=== PATIENT | male | born 1980 | race Caucasian/White ===

== ENCOUNTER 2019-12-28 17:43 | Outpatient (CLI) | payer BC | END 2019-12-28 17:44 | disposition home or self-care (01) | LOC: COV 17:43 | PROVIDERS: ATTEND Family Medicine | DX: R05 Cough (principal); R50.9 Fever, unspecified | CPT/HCPCS: 81599 ==

== ENCOUNTER 2020-07-18 12:07 | Outpatient (CLI) | payer BC | END 2020-07-18 12:08 | disposition home or self-care (01) | LOC: COV 12:07 | PROVIDERS: ATTEND Family Medicine | DX: R06.02 Shortness of breath (principal); M79.10 Myalgia, unspecified site; R53.83 Other fatigue; R51.9 Headache, unspecified; Z20.828 Contact with and (suspected) exposure to other viral communicable diseases ==

== ENCOUNTER 2020-09-21 14:03 | Outpatient (CLI) | payer BC ==
[2020-09-21 14:55] VITALS: BP 126/86
--- NOTE | 2020-09-21 14:55 | SLEEP CARE CONSULTATION ---
Information from patient questionnaire entered by Rach Velasquez. I have reviewed and concur with the information entered by Rach Velasquez. This document represents the service I personally performed and the decisions made by me, Bertha Bah ARNP. History of Present Illness Service Date and Time: 09/21/2020 1403 Reason for Visit: New patient Chief Complaint: reports: Unrefreshed sleep, Snoring, Excessive daytime sleepiness, Fatigue, Frequent awakenings at night. denies: Insomnia, Observed pauses in breathing Date of Onset: 5 years Usual bedtime: 3:00 AM Time it takes to fall asleep: Varies from night to night, 1/2 hour usually Snores at night: Yes (I was told I do, yes) Observed to quit breathing while asleep: No Sleeps alone due to snoring: No Number of times waking at night: 1 to 2 Reasons for waking at night: reports: Bathroom, Other (sometimes no rhyme nor reason). denies: Choking, Snoring, Gasping for air Toss, Turn, or Twitch while sleeping: Yes Recalls having dreams: Yes (sometimes) Usually gets out of bed at: 11:00 AM Feels refreshed in the morning: No Morning headache: Yes (every morning, lasting 1-2 hours; coffee helps) Sleepy or fatigued during the day: Yes Ever fallen asleep while driving: No Takes day naps: No Dreams during day naps: No Prior sleep studies: No Additional HPI information: I had the pleasure of seeing JOHNNY ABBOTT today regarding the possibility of him having a sleep disorder. His current complaints are unrefreshed sleep, snoring, fatigue during the day, morning headaches and frequent night awakenings. He feels like he wakes up too early and then does not feel like he is rested. His stomach is upset in the mornings. His father snores loudly and has pauses in breathing, it has been recommended that he get a CPAP machine but he hasn't gotten it done because he has no insurance. - Parasomnia Symptoms Ever been unable to move upon waking from sleep: No Walks in sleep: No Talks in sleep: Yes (when a child) Ever acted out dreams in sleep: No Ever felt weak in the knees when startled or emotional: No Bothered by creepy, crawly, restless sensations in legs: No Problems with memory or concentration: Yes Subjective Initial [place] Sleepiness Scale score: 8 (in 2020) Past Medical History Past Medical History: reports: Anxiety. 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 Patient is Single and lives in [place]. Have you smoked in the past 12 months: Yes (social thing) Cigarettes per day (20/pack): 10 Years of smokin Quit date: 2011 Smoking Pack Years: 2.5 Alcohol use: Yes Alcohol amount and frequency: 1 to 2 beers, 4 nights a week Caffeine use: Yes Caffeine amount and frequency: 2 cups a day (coffee) Family History Family history of sleep disordered breathing: Yes (My father, he snores) Family Hx Sleep Apnea: Father: Snoring, Sleep apnea - Untreated, Sibling: Snoring Allergies and Home Medications Drug allergies reviewed: Yes (penicillin, amoxicillin) Home medication list reviewed: Yes Allergy and home medication list: AllerClear juice and vitamins Flonase nasal spray, prn Review of Systems Cardiovascular: reports: palpitations (Rarely. Over the years, a few times slight flutter). denies: irregular heart rate or pulse Respiratory: denies: shortness of breath Gastrointestinal: reports: abdominal pain. denies: heartburn, difficulty swallowing Urinary: denies: impotence Neurological: reports: headaches. denies: head trauma Psychiatric: reports: anxiety Ear/Nose/Throat: reports: nasal congestion, nose bleeds (Slight, when dry out), dry mouth/throat, wisdom teeth removed. denies: sinus problems, injury to nose, tonsillectomy Endocrine: reports: sluggishness, too hot or cold, excessive thirst Musculoskeletal: reports: joint pain, neck pain, back pain Immunologic: reports: sneezing (runny nose), itching, allergies to food or environment Physical Exam Blood Pressure: 126/86 Cuff size: wrist Heart Rate: 88 O2 Saturation: 98 Height: 5 ft 9 in Weight: 164 lb Body Mass Index: 24.2 BMI Classification: Healthy weight Nostrils: patent to airflow Turbinates: normal Septum: midline Mouth and throat: narrow oropharynx Uvula visualization: 50% Mallampati Class II Tongue: enlarged in size with teeth bernstein on lateral edges Tonsils: 1+ Neck: normal w/o lymphadenopathy or thyromegaly Heart: regular rate and rhythm Lungs: clear bilaterally Impression and Plan 1. Suspected Obstructive Sleep Apnea-Hypopnea Syndrome, as suggested by a history of loud and irregular snoring, morning headache, frequent awakening during the night, unrefreshed sleep, cognitive impairment and excessive daytime sleepiness. Narrow oropharynx and obesity are common predisposing factors for obstructive sleep apnea-hypopnea syndrome. I recommend proceeding to polysomnography to confirm the diagnosis and to assess severity. If the patient has significant sleep disordered breathing, a manual CPAP titration study will also be performed to find the optimal treatment pressure. I informed the patient of what the sleep studies involve and after some discussion, obtained agreement to proceed. The pathophysiology of obstructive sleep apnea-hypopnea syndrome was discussed with the patient and health risks of cardiovascular and cerebrovascular disease if not treated. AASM brochure for obstructive sleep apnea-hypopnea syndrome given and reviewed. Risks of drowsy driving discussed in detail and patient advised to avoid long distance driving and to ear pull machine operator at the first sign of drowsiness. Patient agreed to plan. * Schedule polysomnography +- manual CPAP titration study. * Avoid long distance driving or driving when feeling sleepy. * Avoid alcohol, sedative and muscle relaxant around bedtime. * Review instructions provided by trained office staff on how to prepare for the sleep study. * Return for follow-up after sleep study completed. Visit Type: In Office Time Spent with Patient (minutes): 31 Provider Statement: I spent 100% of the Face to Face Visit with the patient with greater than 50% spent counseling the patient and coordination of care.
== END 2020-09-21 14:04 | disposition home or self-care (01) ==
LOC: SC 14:03
PROVIDERS: ATTEND Nurse Practitioner Family
DX: G47.10 Hypersomnia, unspecified (principal); R41.89 Other symptoms and signs involving cognitive functions and awareness; G47.8 Other sleep disorders; R51.9 Headache, unspecified; R06.83 Snoring; F17.210 Nicotine dependence, cigarettes, uncomplicated
CPT/HCPCS: 99203; 99212

== ENCOUNTER 2020-10-10 02:00 | Outpatient (CLI) | payer BC | END 2020-10-10 02:01 | disposition home or self-care (01) | LOC: SC 02:00 | PROVIDERS: ATTEND Nurse Practitioner Family | DX: G47.33 Obstructive sleep apnea (adult) (pediatric) (principal); R09.02 Hypoxemia | CPT/HCPCS: 95806 ==

== ENCOUNTER 2020-10-16 12:09 | Outpatient (CLI) | payer BC ==
--- NOTE | 2020-10-16 11:54 | SLEEP CARE CONSULTATION ---
Information from patient questionnaire entered by Maile Trinidad. I have reviewed and concur with the information entered by Maile Trinidad. This document represents the service I personally performed and the decisions made by me, Diandra Kumar MD, [facility]. History of Present Illness Service Date and Time: 10/16/2020 1140 Initial [place] Sleepiness Scale score: 8 (in 2019) Additional HPI information: To minimize the risk of COVID-19 exposure, the patient has requested and consented to this video telemedicine visit. The patient also agrees to having his insurance billed. HPI: Mr. Ivy was called for a follow up of the sleep study he had on 10/10/20. The test showed mild obstructive sleep apnea-hypopnea with an AHI of 10.3 and anat oxygen saturation of 85%. He only slept supine. He recalls being awake half of the night. The patient was informed of these findings. I explained to him the pathophysiology behind obstructive sleep apnea. We then spent quite a bit of time discussing different treatment options. For mild obstructive sleep apnea, surgery and oral appliance are alternatives to nasal CPAP therapy but in moderate or severe cases, nasal CPAP is the most effective and reliable treatment. Weight loss in an obese individual is strongly recommended. After some discussion, he opted to go with the nasal CPAP therapy. I explained to him how CPAP machine works and what to expect when using the machine. He is encouraged to use CPAP every night especially in the first 2 to 3 nights in order to get used to it. He should call his CPAP supplier or me to discuss any mechanical problem that may occur. If he snores or feels like he is not getting enough air from the machine, he should notify me and I will increase the pressure. Sleep Study - Results Type of Sleep Study: Home sleep study Prior sleep studies: No Allergies and Home Medications Drug allergies reviewed: Yes Home medication list reviewed: Yes Review of Systems Review of systems same as previous: Yes Physical Exam Height: 5 ft 9 in Impression and Plan IMPRESSION: 1. Obstructive Sleep Apnea-Hypopnea Syndrome, mild, (could be moderate if he was actually awake half of the night). Possibly, this is the cause of the patients symptoms of unrefreshed sleep, morning headache, and excessive daytime sleepiness. As mentioned above, the patient will be started on an autoCPAP set at 5 - 15 cmH2O. Depending on his response and compliance he may be brought back for an overnight CPAP titration study. PLAN: 1. Prescription made for an autoCPAP, heated humidifier, and related supplies. 2. Avoid alcohol consumption near bedtime. 3. Return in six weeks for follow up. I will assess his response and compliance at that time. Visit Type: Telehealth Video Video Type: Doximity Patient agrees and consents to this telehealth visit type: Yes Patient agrees to have their insurance billed: Yes Time Spent with Patient (minutes): 10 Provider Statement: I spent 100% of the Telehealth Video Call with the patient with greater than 50% spent counseling the patient and coordination of care.
== END 2020-10-16 12:10 | disposition home or self-care (01) ==
LOC: SC 12:09
PROVIDERS: ATTEND Internal Medicine Pulmonary Disease
DX: G47.33 Obstructive sleep apnea (adult) (pediatric) (principal)

== ENCOUNTER 2020-12-13 11:54 | Outpatient (CLI) | payer BC ==
--- NOTE | 2020-12-13 12:32 | SLEEP CARE CONSULTATION ---
Information from patient questionnaire entered by Maile Trinidad. I have reviewed and concur with the information entered by Maile Trinidad. This document represents the service I personally performed and the decisions made by , Bertha Bah ARNP. History of Present Illness Service Date and Time: 12/13/2020 1154 Previous diagnosis: Mild, Obstructive Sleep Apnea-Hypopnea Syndrome AHI: 10.2 (in 2020) Reason for follow up: first compliance Equipment type: CPAP Equipment obtained from: [employer] (got initial supplies) Mask style: Full face Backup mask available: Yes (other mask) Last cushion change: 1 month Prior sleep studies: Yes Year and Where: 2020 - [facility] Type of Sleep Study: Home sleep study HPI additional information: JOHNNY ABBOTT was diagnosed to have mild, AHI 10.3, obstructive sleep apnea- hypopnea syndrome and returned today for CPAP therapy first compliance follow- up. CPAP Compliance Data - Data Reviewed with Patient Average duration of nightly device use: 4 hr 14 min Compliance rate %: 77 (11/01/20-11/30/20) Current pressure setting (cmH2O): 5-6 Humidity settin Average residual AHI: 2.1 Central apnea: 3.8 Obstructive apnea: 0.2 Compliance data discussion: His headaches have reduced. Subjective Patient concerns: reports: nasal congestion. denies: aerophagia, mask discomfort, air blowing in eyes, mask leak noise, condensation in mask/hose, dry mouth, nose, throat, epistaxis, other Observed to snore while using device: No Current pressure setting perceived as: comfortable On therapy, patient: reports: sleeping better, awakening more refreshed, being more awake and alert during the day, more rested overall. denies: drowsiness while driving Initial [place] Sleepiness Scale score: 8 (in 2019) Current [place] Sleepiness Scale score: 8 Allergies and Home Medications Home medication list reviewed: Yes (no new medications) Review of Systems Review of systems same as previous: Yes (no changes) Physical Exam Heart Rate: 73 O2 Saturation: 98 Height: 5 ft 9 in Weight: 167 lb Body Mass Index: 24.6 BMI Classification: Healthy weight Impression and Plan 1. Obstructive Sleep Apnea-Hypopnea Syndrome, mild, with fair treatment compliance and good apnea control. On CPAP therapy, the patient has better sleep quality and is more rested overall. He has been waking up with the mask off and finds that his nose if very congested. Nasal congestion can be reduced with increasing the CPAP humidity. The heated hose can be adjusted higher if condensation with higher humidity setting. Saline nasal spray can be used prior to CPAP to clear nasal secretions and wash off any nasal allergens to facilitate nasal breathing. Verbal instructions given on how to change humidity and heated hose settings with rationale explaining why to change. He voiced understanding. He has adequate control at current pressure settings, no changes today. Patient's apnea severity and rationale for treatment to reduce apnea, improve sleep quality and reduce cardiovascular and cerebrovascular events was reviewed. I also reviewed the benefit of consistent device use of CPAP for anxiety. * Continue auto CPAP pressure at 5-6 cmH2O * Notify me if snoring with mask or feeling that the pressure is too much or too little * Maintain a healthy weight * Call this office if any problems using CPAP * Return for follow up in 1-2 months, or sooner if concerns arise Counseling Topics: Weight control Visit Type: In Office Time Spent with Patient (minutes): 19 Provider Statement: I spent 100% of the Face to Face Visit with the patient with greater than 50% spent counseling the patient and coordination of care.
== END 2020-12-13 11:55 | disposition home or self-care (01) ==
LOC: SC 11:54
PROVIDERS: ATTEND Nurse Practitioner Family
DX: G47.33 Obstructive sleep apnea (adult) (pediatric) (principal)
CPT/HCPCS: 99212

== ENCOUNTER 2021-02-23 11:35 | Outpatient (CLI) | payer BC ==
--- NOTE | 2021-02-23 12:01 | SLEEP CARE CONSULTATION ---
Information from patient questionnaire entered by Maile Trinidad. I have reviewed and concur with the information entered by Maile Trinidad. This document represents the service I personally performed and the decisions made by , Bertha Bah ARNP. History of Present Illness Service Date and Time: 02/23/2021 1135 Previous diagnosis: Mild, Obstructive Sleep Apnea-Hypopnea Syndrome AHI: 10.2 (in 2020) Reason for follow up: other (2 month) Equipment type: CPAP Equipment obtained from: [employer] (no more supplies received yet) Mask style: Full face Backup mask available: No (will keep old mask when replaced) Prior sleep studies: Yes Year and Where: 2020 - [facility] Type of Sleep Study: Home sleep study HPI additional information: JOHNNY ABBOTT was diagnosed to have mild, AHI 10.2, obstructive sleep apnea- hypopnea syndrome and returned today for CPAP therapy two month follow-up. CPAP Compliance Data - Data Reviewed with Patient Average duration of nightly device use: 4 hr 39 min Compliance rate %: 82 (60 days) Current pressure setting (cmH2O): 5-6 Humidity settin Average residual AHI: 2.0 Subjective Missed days of use due to: reports: travel Patient concerns: reports: nasal congestion. denies: aerophagia, mask discomfort, air blowing in eyes, mask leak noise, condensation in mask/hose, dry mouth, nose, throat, epistaxis, other Observed to snore while using device: No Current pressure setting perceived as: comfortable On therapy, patient: reports: sleeping better, awakening more refreshed, being more awake and alert during the day, more rested overall. denies: drowsiness while driving Initial [place] Sleepiness Scale score: 8 (in 2019) Current [place] Sleepiness Scale score: 10 Allergies and Home Medications Home medication list reviewed: Yes (no new meds) Review of Systems Review of systems same as previous: Yes (no changes) Physical Exam Heart Rate: 71 O2 Saturation: 98 Height: 5 ft 9 in Weight: 172 lb Body Mass Index: 25.4 BMI Classification: Overweight Impression and Plan 1. Obstructive Sleep Apnea-Hypopnea Syndrome, mild, with good treatment compliance and good apnea control. On CPAP therapy, the patient has better sleep quality and is more rested overall. He is very satisfied with his treatment. Patient was counseled on the difference between meeting compliance and optimal use of CPAP. Optimal use of CPAP is use of CPAP with all sleep to obtain maximum benefit of treatment. Patient is encouraged to use CPAP with all sleep. He has been getting some increased nasal congestion with seasonal allergies lately that has affected his use of CPAP. Nasal congestion can be reduced with increasing the CPAP humidity as shown on sample device. The heated hose can be adjusted higher if condensation with higher humidity setting. OTC Saline nasal spray may be used prior to CPAP to clear nasal secretions and wash off any nasal allergens to facilitate nasal breathing. In addition, a steamy shower before bed will often assist nasal drainage. He would also like to acquire a portable CPAP device. I advised him that the insurance may not pay for device. A prescription for a portable machine was provided. He voiced understanding and agreement with plan. Patient's apnea severity and rationale for treatment to reduce apnea, improve sleep quality and reduce cardiovascular and cerebrovascular events was reviewed. I also reviewed the benefit of consistent device use of CPAP for anxiety. * Continue auto CPAP pressure at 5-6 cmH2O * Portable CPAP prescription * Notify me if snoring with mask or feeling that the pressure is too much or too little * Attempt to lose weight * Call this office if any problems using CPAP * Return for follow up in 3 months, or sooner if concerns arise Counseling Topics: Weight loss health impact Visit Type: In Office Time Spent with Patient (minutes): 18 Provider Statement: I spent 100% of the Face to Face Visit with the patient with greater than 50% spent counseling the patient and coordination of care.
== END 2021-02-23 11:36 | disposition home or self-care (01) ==
LOC: SC 11:35
PROVIDERS: ATTEND Nurse Practitioner Family
DX: G47.33 Obstructive sleep apnea (adult) (pediatric) (principal); E66.3 Overweight; Z68.25 Body mass index [BMI] 25.0-25.9, adult
CPT/HCPCS: 99212; 99213

== ENCOUNTER 2021-06-01 11:33 | Outpatient (CLI) | payer BC ==
--- NOTE | 2021-06-01 12:23 | SLEEP CARE CONSULTATION ---
Information from patient questionnaire entered by Maile Trinidad. I have reviewed and concur with the information entered by Maile Trinidad. This document represents the service I personally performed and the decisions made by , Bertha Bah ARNP. History of Present Illness Service Date and Time: 06/01/2021 1133 Previous diagnosis: Mild, Obstructive Sleep Apnea-Hypopnea Syndrome AHI: 10.2 (in 2020) Reason for follow up: three month Equipment type: CPAP Equipment obtained from: [employer] (he has got some supplies but has to call) Mask style: Full face Mask brand: [employer]ics ([place]) Backup mask available: No (will keep old mask when replaced) Last cushion change: over 3 months Prior sleep studies: Yes Year and Where: 2020 - [facility] Type of Sleep Study: Home sleep study HPI additional information: JOHNNY ABBOTT was diagnosed to have mild, AHI 10.2, obstructive sleep apnea- hypopnea syndrome and returns via Telehealth visit today for CPAP therapy three month follow-up. CPAP Compliance Data - Data Reviewed with Patient Average duration of nightly device use: 4 hr 30 min Compliance rate %: 77 (90 days) Current pressure setting (cmH2O): 5-6 Humidity settin Average residual AHI: 1.8 Subjective Patient concerns: reports: mask leak noise (needs new mask cushion), condensation in mask/hose, nasal congestion, dry mouth, nose, throat (has turned up the humidity). denies: aerophagia, mask discomfort, air blowing in eyes, epistaxis, other Observed to snore while using device: No Current pressure setting perceived as: comfortable On therapy, patient: reports: sleeping better, awakening more refreshed, being more awake and alert during the day, more rested overall. denies: drowsiness while driving Initial [place] Sleepiness Scale score: 8 (in 2019) Current [place] Sleepiness Scale score: 9 Allergies and Home Medications Home medication list reviewed: Yes (increased supplements) Review of Systems Review of systems same as previous: Yes (no changes) Physical Exam Vital signs obtained and entered by: Telehealth visit to reduce exposure during Covid pandemic Height: 5 ft 9 in Impression and Plan 1. Obstructive Sleep Apnea-Hypopnea Syndrome, mild, with good treatment compliance and good apnea control. On CPAP therapy, the patient has better sleep quality and is more rested overall. Patient has had some nasal congestion and mouth dryness. He tried to increase his humidity but then he had water in the tubing that was causing gurgling sounds. He has also had more mask leaking due to the mask cushion needing to be replaced. Oral dryness can be reduced by adjusting humidity setting higher or heated hose lower or by adjusting both set tings. Oral dryness can also be reduced by reducing mask leaks. Patient has had difficulty getting response from his DME on supplies. They will get the supplies to him but he has to continually call them. He will call to get a new mask cushion since it needs replacement to reduce leaking. Patient's apnea severity and rationale for treatment to reduce apnea, improve sleep quality and reduce cardiovascular and cerebrovascular events was reviewed. I also reviewed the benefit of consistent device use of CPAP for anxiety. * Continue auto CPAP pressure at 5-6 cmH2O * Notify me if snoring with mask or feeling that the pressure is too much or too little * Call this office if any problems using CPAP * Return for follow up in 6 months, or sooner if concerns arise Counseling Topics: Spare mask, Weight loss health impact Visit Type: Telehealth Video Video Type: VSee Patient Location: Home Location of Provider: Office Patient agrees and consents to this telehealth visit type: Yes Patient agrees to have their insurance billed: Yes Time Spent with Patient (minutes): 22 Provider Statement: I spent 100% of the Telehealth Video Call with the patient with greater than 50% spent counseling the patient and coordination of care.
== END 2021-06-01 11:34 | disposition home or self-care (01) ==
LOC: SC 11:33
PROVIDERS: ATTEND Nurse Practitioner Family
DX: G47.33 Obstructive sleep apnea (adult) (pediatric) (principal)

== ENCOUNTER 2021-11-10 08:00 | Outpatient (CLI) | payer SELFPAY ==
--- NOTE | 2021-11-10 18:25 | XRAY Report ---
PROCEDURE: Chest 2 View X-Ray INDICATIONS: COUGH TECHNIQUE: 2 view(s) of the chest. COMPARISON: None. FINDINGS: Surgical changes and devices: None. Lungs and pleura: No pleural effusions or pneumothorax. Mild generalized interstitial infiltrates ar e seen on both sides. Mediastinum: Mediastinal contours are normal. Heart size is normal. Bones and chest wall: No suspicious bony abnormalities. Soft tissues appear unremarkable. IMPRESSION: Bilateral patchy infiltrates are seen, which are consistent with the known clinical hist ory of COVID pneumonia. Reviewed by: Ray Pierce MD on 11/10/2021 5:23 PM [facility] Approved by: Ray Pierce MD on 11/10/2021 5:23 PM [facility] Station ID: [id number]
== END 2021-11-10 23:59 | disposition home or self-care (01) ==
LOC: DI.S 08:00
PROVIDERS: ATTEND Physician Assistant
DX: U07.1 COVID-19 (principal)

== ENCOUNTER 2022-02-11 08:00 | Outpatient (CLI) | payer SELFPAY ==
--- NOTE | 2022-02-11 16:26 | XRAY Report ---
PROCEDURE: Chest 2 View X-Ray INDICATIONS: MALAISE TECHNIQUE: 2 view(s) of the chest. COMPARISON: To 522 plain films FINDINGS: Surgical changes and devices: None. Lungs and pleura: No pleural effusions or pneumothorax. Lungs are clear. Mediastinum: Mediastinal contours are normal. Heart size is normal. Bones and chest wall: No suspicious bony abnormalities. Soft tissues appear unremarkable. IMPRESSION: No acute process. Reviewed by: Jessica Gandhi MD on 02/11/2022 4:24 PM PDT Approved by: Jessica Gandhi MD on 02/11/2022 4:24 PM PDT Station ID: [id number]
[2022-02-11 20:05] LABS: BASOPHILS % (AUTO) 0.5 %; EOSINOPHILS # (AUTO) 0.1 10^3/uL (0.0-0.7); HCT - HEMATOCRIT 48.9 % (42.0-52.0); HGB - HEMOGLOBIN 16.7 g/dL (14.0-18.0); LYMPHOCYTES # (AUTO) 1.3 10^3/uL (1.5-3.5); LYMPHOCYTES % (AUTO) 24.3 %; MEAN CORPUSCULAR HEMOGLOBIN 31.6 pg (27.0-31.0); MEAN CORPUSCULAR HGB CONC 34.2 g/dL (32.0-36.0); MEAN CORPUSCULAR VOLUME 92.6 fL (80.0-94.0); MEAN PLATELET VOLUME 9.8 fL (7.4-11.4); MONOCYTES # (AUTO) 0.5 10^3/uL (0.0-1.0); MONOCYTES % (AUTO) 8.2 %; NEUTROPHILS # (AUTO) 3.6 10^3/uL (1.5-6.6); NEUTROPHILS % (AUTO) 64.8 %; PLT - PLATELET COUNT 286 10^3/uL (130-450); RED BLOOD COUNT 5.28 10^6/uL (4.70-6.10); RED CELL DISTRIBUTION WIDTH 12.8 % (12.0-15.0); WHITE BLOOD COUNT 5.5 x10^3/uL (4.8-10.8)
[2022-02-11 20:33] LABS: ALBUMIN 4.8 g/dL (3.2-5.5); ALBUMIN/GLOBULIN RATIO 1.4 (1.0-2.2); BILIRUBIN,TOTAL 0.8 mg/dL (0.2-1.0); CALCIUM 9.8 mg/dL (8.5-10.3); CREATININE 0.9 mg/dL (0.6-1.2); POTASSIUM 4.1 mmol/L (3.5-5.0); TOTAL PROTEIN 8.2 g/dL (6.7-8.2)
[2022-02-11 20:47] LABS: THYROID STIMULATING HORMONE 2.14 uIU/mL (0.34-5.60)
== END 2022-02-11 23:59 | disposition home or self-care (01) ==
LOC: DI.S 08:00
PROVIDERS: ATTEND Physician Assistant Medical
DX: R53.81 Other malaise (principal); R06.02 Shortness of breath; Z20.822 Contact with and (suspected) exposure to COVID-19
CPT/HCPCS: 36415; 80053; 84443; 85025; 85651; 87275; 87276

== ENCOUNTER 2023-02-21 08:00 | Outpatient (CLI) | payer BC ==
--- NOTE | 2023-02-21 19:11 | XRAY Report ---
PROCEDURE: Shoulder 3 View RT INDICATIONS: RIGHT SHOULDER PAIN TECHNIQUE: 3 views of the shoulder were acquired. COMPARISON: None. FINDINGS: Bones: No fractures or dislocations. No suspicious bony lesions. Visualized ribs appear intact. Mild AC joint degenerative changes. Soft tissues: No suspicious soft tissue calcifications. IMPRESSION: No acute bony abnormality. If pain persists with conservative management, consider repeat radiographs in 10-14 days or cross-sectional imaging. Reviewed by: Shade Ramos MD on 02/21/2023 7:10 PM PDT Approved by: Shade Ramos MD on 02/21/2023 7:10 PM PDT Station ID: [id number]
--- NOTE | 2023-02-21 19:13 | XRAY Report ---
PROCEDURE: Cervical Spine 2 View INDICATIONS: CERVICAL RADICULOPATHY TECHNIQUE: 3 view(s) of the cervical spine were acquired. COMPARISON: None. FINDINGS: Bones: No definite acute fractures or dislocations to the T1 level. No suspicious bony lesions. Mild multilevel degenerative changes with disc height loss, endplate spurring, and facet arthropathy. Soft tissues: No prevertebral soft tissue swelling. IMPRESSION: Mild degenerative changes of the cervical spine. Reviewed by: Shade Ramos MD on 02/21/2023 7:12 PM PDT Approved by: Shade Ramos MD on 02/21/2023 7:12 PM PDT Station ID: [id number]
== END 2023-02-21 23:59 | disposition home or self-care (01) ==
LOC: DI.S 08:00
PROVIDERS: ATTEND Registered Nurse
DX: M47.812 Spondylosis without myelopathy or radiculopathy, cervical region (principal); M19.011 Primary osteoarthritis, right shoulder

== ENCOUNTER 2023-04-12 13:08 | Outpatient (CLI) | payer BC ==
--- NOTE | 2023-04-12 20:28 | XRAY Report ---
PROCEDURE: Sinus Complete INDICATIONS: SNORING TECHNIQUE: 3 views of the sinuses were acquired. COMPARISON: None FINDINGS: Sinuses: The visualized sinuses demonstrate no air-fluid levels or mucosal thickening. The visualiz ed mastoids also appear clear. Multiple screws are seen in the mandible and facial bones. Bones: No suspicious bony lesions. Nasal septum is midline. IMPRESSION: No acute sinus disease. Reviewed by: Ralph Finn on 04/12/2023 7:27 PM [facility] Approved by: Ralph Finn on 04/12/2023 7:27 PM [facility] Station ID: [id number]
== END 2023-04-12 13:09 | disposition home or self-care (01) ==
LOC: DI.S 13:08
PROVIDERS: ATTEND Internal Medicine
DX: R07.89 Other chest pain (principal); M54.12 Radiculopathy, cervical region; M25.511 Pain in right shoulder; R53.83 Other fatigue; Z99.89 Dependence on other enabling machines and devices; G47.33 Obstructive sleep apnea (adult) (pediatric); R53.81 Other malaise; R06.02 Shortness of breath; G47.00 Insomnia, unspecified

== ENCOUNTER 2023-08-27 12:23 | Outpatient (CLI) | payer BC | END 2023-08-27 12:24 | disposition home or self-care (01) | LOC: DI 12:23 | PROVIDERS: ATTEND Internal Medicine | DX: R07.89 Other chest pain (principal); R06.02 Shortness of breath; R53.81 Other malaise; G47.33 Obstructive sleep apnea (adult) (pediatric); G47.00 Insomnia, unspecified | CPT/HCPCS: 93306 ==